=== PATIENT | female | born 1940 | race Caucasian/White ===

== ENCOUNTER 2016-03-23 15:15 | Outpatient (RCR) ==
[2013-04-13 18:57] VITALS: BMI 31.5
--- NOTE | 2016-03-21 16:12 | RS.OPPTDN ---
Subjective Date of Note: 03/21/16 Visit #: 17 Date of Evaluation: 01/13/16 Payer Source: MEDICARE Treatment Diagnosis: BLE weakness Current Subjective/complaints:: No c/o. Pain Assessment - Pain Description Current Pain Intensity: 0 Other Comments regarding Pain:: muscle soreness,but minimal Interventions - Exercise/Activities/Manual Therapy Exercises/Activities: 45 mins. total of Leg Press 75# for 04/02,90# for 05/03. Calf-raises onleg press ,05/31 @ 45#,blue theraband for seated hip abduction 3 15 reps.Side -steps up/down on base of treadmill at end of session.HEP review. Total minutes of Exercise: 45 Manual Therapy: na Total minutes of Manual Therapy: 0 HOME EXERCISE PROGRAM: Isometrics for hip strength, AROM in supine or sitting all planes as tolerated. Standing at kitchen counter for mini-squat, hip abd, toe-ups, weight-shift. - Charges Total Direct Minutes: 45 Total Treatment Time: 45 Procedures billed for this date of service:: ex3 Assessment: Patient has improved foot clearance,along with increased hip flexion with ambulatiion.She has steadier sit to stand transfers ,no lateral loss of balance noted today. Patient Education: Body/Joint mechanics, Home Exercise Program, Home Safety, Education of Plan of Care Patient demonstrates compliance with HEP?: Yes Short Term Goals Goal #1: Patient able to rise from a chair with minimal use of her hands. Goal to be met by: 03/07/16 Progress towards Goal:: Met Goal #2: Able to tolerated 20 reps of BLE exercise wtihout rest. 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 Goal to be met by: 03/23/16 Progress towards goal: Partially Met Goal #2: Patient is able to go shopping without having sit & rest from LE fatigue Goal to be met by: 03/23/16 Progress towards goal: Partially Met Goal #3: Tinetti score 20/28 Goal to be met by: 03/23/16 Progress towards goal: Progressing Goal #4: LE Functional Scale 55/80 Goal to be met by: 03/23/16 (34/80 today) Progress towards goal: Progressing Plan PLAN OF CARE EXPIRES ON:: 03/23/16 ORDER # VISITS AND/OR THROUGH DATE: 03/23/16 PLAN: Continue Plan of Care
--- NOTE | 2016-03-23 16:37 | RS.OPPTDN ---
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 Pain Assessment - Pain Description Pain Location: general ache Current Pain Intensity: 0 Interventions - Exercise/Activities/Manual Therapy Exercises/Activities: 45 mins. total of Leg Press 75# for 04/02,90# for 05/03. Calf-raises onleg press ,05/31 @ 45#,Side -steps up/down on base of treadmill at end of session.HEP review.Tinetti Assessment of ,Lower Extremity Functional Scoreof 40 /80. Total minutes of Exercise: 45 Manual Therapy: na Total minutes of Manual Therapy: 0 HOME EXERCISE PROGRAM: Isometrics for hip strength, AROM in supine or sitting all planes as tolerated. Standing at kitchen counter for mini-squat, hip abd, toe-ups, weight-shift. - Charges Total Direct Minutes: 45 Total Treatment Time: 45 Procedures billed for this date of service:: ex 3 Assessment: Patient progressed well,has met rehab potential ,with steadier transfers and gait .Her lateral trunk sway is significantly decreased with ambulation.She has very good understanding of safety issues and HEP.she is aware of /agrees with D/C today. Patient Education: Education of diagnosis, Body/Joint mechanics, Home Exercise Program, Home Safety, Activity Modification, Education of Plan of Care Patient demonstrates compliance with HEP?: Yes Short Term Goals Goal #1: Patient able to rise from a chair with minimal use of her hands. Goal to be met by: 03/07/16 Progress towards Goal:: Met Goal #2: Able to tolerated 20 reps of BLE exercise wtihout rest. 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 Goal to be met by: 03/23/16 Progress towards goal: Met Goal #2: Patient is able to go shopping without having sit & rest from LE fatigue Goal to be met by: 03/23/16 Progress towards goal: Met Goal #3: Tinetti score 20/28 Goal to be met by: 03/23/16 (26) Progress towards goal: Met Goal #4: LE Functional Scale 55/80 Goal to be met by: 03/23/16 (40/80) Progress towards goal: Progressing Plan PLAN OF CARE EXPIRES ON:: 03/23/16 ORDER # VISITS AND/OR THROUGH DATE: 03/23/16 PLAN: Plan for Discharge
--- NOTE | 2016-04-06 11:47 | RS.OPPTDC ---
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 Reports feeling confident that she can continue her exercises at home. Pain Assessment - Pain Description Pain Location: general ache Current Pain Intensity: 0 Functional Outcome Measure LE Functional Scale: 40 (50% impairment) Tinetti: 26 (26/28) - G Codes & Severity Modifier G Codes & Modifier: Mobilty goal CI. Mobility D/C CK Source of G Code score: LE functional scale Gait - Gait Pattern Gait Comments: Patient ambulates without assistive device with lateral trunk sway. She demonstrates minimal deviation from straigth path. Interventions - Exercise/Activities/Manual Therapy Exercises/Activities: NA Manual Therapy: na HOME EXERCISE PROGRAM: Isometrics for hip strength, AROM in supine or sitting all planes as tolerated. Standing at kitchen counter for mini-squat, hip abd, toe-ups, weight-shift. - Objective Findings Observations,measurements,etc.: Patient demonstrates improved LE and trunk strength of 4+ to 5-/5. Demonstrates good static balance. Dynamic balance is good (-). - Charges Total Direct Minutes: NA Total Treatment Time: NA Procedures billed for this date of service:: NA Assessment Assessment: Patient demonstrates improved safety with ambulation. Tinetti assessment shows her now to be at a low risk for falls with score of 26/28. She is independent with HEP and demonstrates no further need for skilled therapy. Short Term Goals Goal #1: Patient able to rise from a chair with minimal use of her hands. Goal to be met by: 03/07/16 Progress towards Goal:: Met Goal #2: Able to tolerated 20 reps of BLE exercise wtihout rest. Goal to be met by: 03/07/16 Progress towards Goal:: Met Goal #3: Paitient ambulates X 400' with minimal path deviation and good gait pattern Goal to be met by: 03/07/16 Progress towards Goal:: Met Goal #4: Independent with HEP Goal to be met by: 03/07/16 Progress towards Goal:: Met Transportation Supervisor Goals Goal #1: Bilateral hip strength 4+/5 for stability. Goal to be met by: 03/23/16 Progress towards goal: Met Goal #2: Patient is able to go shopping without having sit & rest from LE fatigue Goal to be met by: 03/23/16 Progress towards goal: Met Goal #3: Tinetti score 20/28 Goal to be met by: 03/23/16 (26) Progress towards goal: Met Goal #4: LE Functional Scale 55/80 Goal to be met by: 03/23/16 (40/80) Progress towards goal: Not Met Plan Reason for Discharge:: No Further Skilled Therapy Indicated
== END 2016-04-06 13:32 | disposition home or self-care (01) ==
PROVIDERS: ATTEND Internal Medicine Rheumatology
DX: M62.81 Muscle weakness (generalized) (principal)

== ENCOUNTER 2016-04-09 08:54 | Emergency (ER) ==
[2016-04-09 09:00] VITALS: BP 164/90; TEMP 98.9; BMI 28.7
[2016-04-09] MEDS ORDERED: DUONEB NEB STA ×2 (09:14→11:00)
--- NOTE | 2016-04-09 09:29 | DI ---
EXAM: Two views of the chest. History: Cough. Comparison: Chest radiograph 04/13/2013 Findings: Borderline cardiomegaly. No focal consolidation. No appreciable pleural fluid and no pne umothorax. No acute osseous abnormalities. Moderate to severe degenerative disc disease within the visualized upper lumbar spine. Impression: Borderline cardiomegaly without acute disease in the chest.
[2016-04-09 09:42] LABS: BASOPHILS % (AUTO) 0.2 % (0.0-3.0); EOSINOPHILS # (AUTO) 0.4 K/ul (0.0-0.7); EOSINOPHILS % (AUTO) 3.5 % (0.0-7.0); HEMATOCRIT 32.4 % (37.0-47.0); HEMOGLOBIN 10.2 g/dl (12.0-16.0); IMMATURE GRANULOCYTE % (AUTO) 0.4 % (0.0-5.0); LYMPHOCYTES # (AUTO) 1.3 K/uL (0.60-3.4); LYMPHOCYTES % (AUTO) 10.3 (10.0-50.0); MEAN CORPUSCULAR HEMOGLOBIN 29.9 pg (27.0-31.0); MEAN CORPUSCULAR HGB CONC 31.5 (31.8-35.4); MONOCYTES # (AUTO) 1.6 K/uL (0.4-2.0); MONOCYTES % (AUTO) 12.9 (0-10); NEUTROPHILS % (AUTO) 72.7; PLATELET COUNT 260 10^3/uL (140-440); RED BLOOD COUNT 3.41 10^6/ul (4.20-5.40); WHITE BLOOD COUNT 12.37 K/ul (4.6-10.2)
[2016-04-09 10:06] LABS: FLU INTERNAL QC INTERNAL QC VALID; RAPID FLU A NEGATIVE (NEGATIVE); RAPID FLU B NEGATIVE (NEGATIVE)
[2016-04-09 10:07] LABS: ALBUMIN 3.8 g/dL (3.4-5.0); ALBUMIN/GLOBULIN RATIO 1.03; ANION GAP 15.8; BILIRUBIN,TOTAL 0.79 mg/dL (0.00-1.20); BUN/CREATININE RATIO 17.8; CALCIUM 10.5 mg/dL (8.2-10.2); CREATININE 1.46 mg/dL (0.60-1.30); POTASSIUM 3.8 mmol/L (3.5-5.10); TOTAL PROTEIN 7.5 g/dL (5.8-8.1); TROPONIN I 0.028 ng/ml (0.0000-0.4000)
[2016-04-09] MEDS ORDERED: DECADRON 4 MG/ML SDV IM STA (10:53)
[2016-04-09] MEDS ORDERED: LIDOCAINE 1 % AMP 5 ML (SUTURES) IM STA (11:00)
[2016-04-09] MEDS ORDERED: ROCEPHIN IM STA (11:00)
--- NOTE | 2016-04-09 11:00 | ED.PDOC ---
General ED Provider: Dr. ROSALIO VALDOVINOS Chief Complaint: Respiratory Complaint Stated Complaint: cough Time Seen by Physician: 09:00 (saw PMD ABOUT 3 DAYS AGO ON ANTIBIOTICS AND COUGH MEDS ) Mode of Arrival: Walk-In Information Source: Patient Exam Limitations: No limitations Primary Care Provider: STEVE CORNEJO Nursing and Triage Documentation Reviewed and Agree: Yes Respiratory Complaint Exam - Respiratory Complaint/Exam Onset/Duration: 3 TO 4 DAYS Symptoms Are: Still present Timing: Constant Initial Severity: Mild Current Severity: Mild Location: Throat, Chest Character: Reports: Productive cough (YELLOW , THICK) Alleviating: Reports: Bronchodilators Associated Signs and Symptoms: Reports: Nasal congestion Related History: Reports: Similar episode Related Surgical History: Reports: None Pulmonary Embolism Risk Factors: None Cardiac Risk Factors: Reports: Diabetes, Hypertension Tuberculosis Risk Factors: Reports: None Status Asthmaticus Risk Factors: Reports: None Home Oxygen Use: No Recent Stress Test: No Recent Echo/LV Function: No Current Antibiotic Use: No Current Asthma Medication Use: No Respiratory Distress: None Inadequate Respiratory Effort: No Dysphagia Present: No Stridor Present: No JVD Present: No Retractions: Not Present Diminished Breath Sounds: No Sinus Tenderness: None Grunting Respirations: No Kussmaul Respirations: No Differential Diagnoses: Pneumonia, Bronchitis Review of Systems - Review Of Systems Constitutional: Reports: No symptoms Eyes: Reports: No symptoms Ears, Nose, Mouth, Throat: Reports: No symptoms Respiratory: Reports: Cough, Wheezing Cardiac: Reports: No symptoms GI: Reports: No symptoms : Reports: No symptoms Musculoskeletal: Reports: No symptoms Skin: Reports: No symptoms Neurological: Reports: No symptoms Endocrine: Reports: No symptoms Hematologic/Lymphatic: Reports: No symptoms All Other Systems: Reviewed and Negative Past Medical History - Past Medical History Previously Healthy: No Endocrine: Reports: DM 2, Hypothyroid Cardiovascular: Reports: Hypertension Respiratory: Reports: None Hematological: Reports: None Gastrointestinal: Reports: None Genitourinary: Reports: None Neuro/Psych: Reports: None Musculoskeletal: Reports: None Cancer: Reports: Breast Last Menstrual Period: several years ago - Surgical History General Surgical History: Reports: Unknown - Family History Family History: Reports: Unknown - Social History Smoking Status: Former smoker Hx Substance Use: No Alcohol Screening: None - Immunizations Tetanus Shot up to Date: No Physical Exam - Physical Exam Appearance: Well-appearing, No pain distress, Well-nourished Eyes: JARVIS, EOMI, Conjunctiva clear ENT: Ears normal, Nose normal, Oropharynx normal Respiratory: Rhonchi Cardiovascular: RRR, Pulses normal, No rub, No murmur GI/: Soft, Nontender, No masses, Bowel sounds normal, No Organomegaly Musculoskeletal: Normal strength, ROM intact, No edema, No calf tenderness Skin: Warm, Dry, Normal color Neurological: Sensation intact, Motor intact, Reflexes intact, Cranial nerves intact, Alert, Oriented Psychiatric: Affect appropriate, Mood appropriate Critical Care Note - Critical Care Note Total Time (mins): 0 Course - Course Hematology/Chemistry: 04/09/16 09:30 04/09/16 09:30 Orders, Labs, Meds: Lab Review 04/08/16 04/09/16 09:30 09:30 WBC 12.37 H RBC 3.41 L Hgb 10.2 L Hct 32.4 L MCV 95.0 MCH 29.9 MCHC 31.5 L RDW Coeff of Girma 15.5 H Plt Count 260 Immature Gran % (Auto) 0.4 Neut % (Auto) 72.7 Lymph % (Auto) 10.3 [place] % (Auto) 12.9 H Eos % (Auto) 3.5 Baso % (Auto) 0.2 Immature Gran # (Auto) 0.1 Neut # 9.0 H Lymph # 1.3 [place] # 1.6 Eos # 0.4 Baso # 0.0 D-Dimer 1.62 Sodium 140 Potassium 3.8 Chloride 100 Carbon Dioxide 28 Anion Gap 15.8 BUN 26 H Creatinine 1.46 H Estimated GFR (MDRD) 35.00 BUN/Creatinine Ratio 17.80 Glucose 119 H Calcium 10.5 H Total Bilirubin 0.79 AST 22 ALT 30 Alkaline Phosphatase 131 Total Creatine Kinase 68 Troponin I 0.0280 B-Natriuretic Peptide 149 H Total Protein 7.5 Albumin 3.8 Globulin 3.7 Albumin/Globulin Ratio 1.03 Influenza A (Rapid) Negative Influenza B (Rapid) Negative Orders Category Date Time Status NEBULIZER TREATMENT Stat CARDIO 04/09/16 09:14 Ordered B-TYPE NATRIURETIC PEPTIDE Stat LAB 04/09/16 09:30 Completed BLOOD CULTURE Stat LAB 04/09/16 09:30 Received CBC W/ AUTO DIFF Stat LAB 04/09/16 09:30 Completed COMPREHENSIVE METABOLIC PANEL Stat LAB 04/09/16 09:30 Completed CREATINE KINASE Stat LAB 04/09/16 09:30 Completed D-DIMER Stat LAB 04/09/16 09:30 Completed MOLECULAR GROUP A STREP Stat LAB 04/08/16 09:30 Results RAPID FLU A/B Stat LAB 04/08/16 09:30 Completed STREP SCREEN Stat LAB 04/08/16 09:30 Results TROPONIN I Stat LAB 04/09/16 09:30 Completed Dexamethasone 4 mg/ml Inj [Decadron 4 mg/ml Sdv] MEDS 04/09/16 10:53 Stat 4 mg IM ONCE STA Ipratropium/Albuterol Neb [Duoneb] MEDS 04/09/16 09:14 Discontinued 1 vial NEB ONCE STA CHEST, 2 VIEWS PA & LAT Stat RADS 04/09/16 09:12 Completed Medications Discontinued Medications Generic Name Dose Route Start Last Admin Trade Name Freq PRN Reason Stop Dose Admin Albuterol/Ipratropium 1 vial 04/09/16 09:14 04/09/16 09:30 Duoneb NEB 04/09/16 09:15 1 vial ONCE STA Administration Dexamethasone Sodium Phosphate 4 mg 04/09/16 10:53 Decadron 4 Mg/Ml Sdv IM 04/09/16 10:54 ONCE STA Vital Signs: Temp Pulse Resp BP Pulse Ox 04/09/16 08:54 98.9 F 84 20 164/90 H 96 Departure - Departure Time of Disposition: 11:02 Disposition: HOME SELF-CARE Discharge Problem: Bronchitis Instructions: Acute Bronchitis (ED), Wheezing (ED), How Your Lungs Work (ED), Bronchospasm (ED) Condition: Good Pt referred to PMD for follow-up: No Additional Instructions: Please call your Family Physician as soon as possible to schedule a follow-up appointment. Allergies/Adverse Reactions: Allergies No Known Drug Allergies Adverse Reaction (Unverified 04/13/13 20:01) Home Medications: Ambulatory Orders Furosemide [Lasix Tab] 40 mg PO DAILY 04/13/13 Lansoprazole [Prevacid] 30 mg PO DAILY 04/13/13 Levothyroxine Sodium [Synthroid] 150 mcg PO DAILY 04/13/13 Pravastatin Sodium [Pravachol] 40 mg PO DAILY 04/13/13 Sitagliptin Phos/Metformin HCl [Janumet 50-1,000 mg Tablet] 1 tab PO DAILY 04/13 Tramadol HCl [Ultram] 50 mg PO BID PRN 04/13/13 Disposition Discussed With: Patient, Family
[2016-04-18 15:19] LABS: AEROBIC + ANAEROB SUSC Final report (.); BACTERIA IDENTIFICATION Final report (.)
== END 2016-04-09 11:44 | disposition home or self-care (01) ==
LOC: ED 08:54
DX: J20.8 Acute bronchitis due to other specified organisms (principal); I10 Essential (primary) hypertension; E11.9 Type 2 diabetes mellitus without complications; E03.9 Hypothyroidism, unspecified; Z79.899 Other long term (current) drug therapy
CPT/HCPCS: 36415; 80053; 82550; 83880; 84484; 85025; 85379; 87040; 87070; 87077; 87186; 87651; 87804; 87880; 94640; 96372; 99283

== ENCOUNTER 2016-08-01 14:10 | Outpatient (CLI) | END 2016-08-01 14:11 | LOC: AMBL 14:10 | PROVIDERS: ATTEND Emergency Medicine | DX: M79.672 Pain in left foot (principal); M79.671 Pain in right foot; G62.9 Polyneuropathy, unspecified; R73.9 Hyperglycemia, unspecified ==

== ENCOUNTER 2017-05-02 17:00 | Outpatient (CLI) | END 2017-05-02 17:01 | disposition home or self-care (01) | LOC: LAB 17:00 | PROVIDERS: ATTEND Specialist | DX: C50.512 Malignant neoplasm of lower-outer quadrant of left female breast (principal); R97.8 Other abnormal tumor markers | CPT/HCPCS: 36415; 85025 ==

== ENCOUNTER 2017-06-04 12:18 | Outpatient (CLI) | END 2017-06-04 12:19 | disposition home or self-care (01) | LOC: FCC-LAB 12:18 | PROVIDERS: ATTEND Nurse Practitioner Family | DX: R50.9 Fever, unspecified (principal); J02.9 Acute pharyngitis, unspecified | CPT/HCPCS: 87651; 87804 ==

== ENCOUNTER 2017-06-26 08:05 | Outpatient (CLI) | END 2017-06-26 08:06 | disposition home or self-care (01) | LOC: LAB 08:05 | PROVIDERS: ATTEND Family Medicine | DX: E03.9 Hypothyroidism, unspecified (principal); E11.9 Type 2 diabetes mellitus without complications; N18.2 Chronic kidney disease, stage 2 (mild); I10 Essential (primary) hypertension; Z23 Encounter for immunization; Z68.29 Body mass index [BMI] 29.0-29.9, adult; Z87.891 Personal history of nicotine dependence; G44.83 Primary cough headache | CPT/HCPCS: 36415; 80053; 80061; 83036; 84439; 84443; 85027 ==

== ENCOUNTER 2018-05-07 17:50 | Outpatient (CLI) | END 2018-05-07 17:51 | disposition home or self-care (01) | LOC: LAB 17:50 | PROVIDERS: ATTEND Specialist | DX: C50.512 Malignant neoplasm of lower-outer quadrant of left female breast (principal); D53.9 Nutritional anemia, unspecified | CPT/HCPCS: 36415; 85025 ==

== ENCOUNTER 2018-05-29 17:55 | Outpatient (CLI) | END 2018-05-29 17:56 | disposition home or self-care (01) | LOC: LAB 17:55 | PROVIDERS: ATTEND Specialist | DX: D53.9 Nutritional anemia, unspecified (principal) | CPT/HCPCS: 36415; 85025 ==

== ENCOUNTER 2018-07-07 12:08 | Emergency (ER) ==
[2018-07-07 12:08] VITALS: BMI 28.7
[2018-07-07 12:10] VITALS: BP 167/80; TEMP 102
--- NOTE | 2018-07-07 12:57 | CT ---
EXAM: CT scan chest without contrast HISTORY: Cough fever COMPARISON: None. FINDINGS: Contiguous axial images obtained through the thorax without [place] utilizing 5-mm collimatio n. Sagittal and coronal reconstructions were imaged and reviewed.. The thoracic inlet is unremarkab le. There are subcentimeter mediastinal lymph nodes. Calcified lymph nodes are seen within the bila teral monse. The ascending aorta is ectatic measuring 3.2 cm. Heart is enlarged with coronary calcif ication. There is no pericardial effusion.. Consolidation is noted at the right lung base compatibl e with pneumonia. There is no evidence of a pleural effusion.: . The left lung is clear. There has been prior cholecystectomy . There are thickening left adrenal gland. IMPRESSION: Right lower lobe pneumonia Follow-up chest x-ray is suggested to ensure complete resolution
[2018-07-07] MEDS ORDERED: TYLENOL PO STA (13:14)
--- NOTE | 2018-07-07 13:17 | ED.PDOC ---
General ED Provider: Dr. TRINA VELASQUEZ-ER Chief Complaint: Fever Stated Complaint: ilia had a cough Time Seen by Physician: 12:10 Mode of Arrival: Walk-In Information Source: Patient Exam Limitations: No limitations Primary Care Provider: TRINA VELASQUEZ Nursing and Triage Documentation Reviewed and Agree: Yes Does patient meet sepsis criteria?: No System Inflammatory Response Syndrome: Not Applicable Sepsis Protocol: For patient's 13 years and over: Temp is 96.8 and below OR 101 and greater Pulse >90 BPM Resp >20/minute Acutely Altered Mental Status Are patient's symptoms suggestive of a new infection, such as: -Pneumonia -Skin, Soft Tissue -Endocarditis -UTI -Bone, Joint Infection -Implantable Device -Acute Abdominal Infection -Wound Infection -Meningitis -Blood Stream Catheter Infection -Unknown Respiratory Complaint Exam - Respiratory Complaint/Exam Onset/Duration: 2 days Symptoms Are: Still present Timing: Intermittent Initial Severity: Mild Current Severity: Moderate Location: Chest Character: Reports: Non-productive cough Aggravating: Reports: URI Associated Signs and Symptoms: Reports: Fever, Chills, URI. Denies: Rapid breathing, Dyspnea Related History: Reports: Similar episode History of Healthcare-Acquired Pneumonia: No Home Oxygen Use: No Recent Stress Test: No Recent Echo/LV Function: No Current Antibiotic Use: No Current Asthma Medication Use: No Respiratory Distress: None Inadequate Respiratory Effort: No Dysphagia Present: No Stridor Present: No JVD Present: No Accessory Muscle Use: No Retractions: Not Present Diminished Breath Sounds: No Sinus Tenderness: None Grunting Respirations: No Kussmaul Respirations: No Differential Diagnoses: Pneumonia Review of Systems - Review Of Systems Constitutional: Reports: Chills, Fever, Weakness Eyes: Reports: No symptoms Ears, Nose, Mouth, Throat: Reports: No symptoms Respiratory: Reports: Cough Cardiac: Reports: No symptoms GI: Reports: No symptoms : Reports: No symptoms Musculoskeletal: Reports: No symptoms Skin: Reports: No symptoms Neurological: Reports: No symptoms Endocrine: Reports: No symptoms Hematologic/Lymphatic: Reports: No symptoms All Other Systems: Reviewed and Negative Past Medical History - Past Medical History Previously Healthy: No Endocrine: Reports: DM 2, Hypothyroid Cardiovascular: Reports: Hypertension Respiratory: Reports: None Hematological: Reports: None Gastrointestinal: Reports: None Genitourinary: Reports: None Neuro/Psych: Reports: None Musculoskeletal: Reports: None Cancer: Reports: Breast Last Menstrual Period: HYSTERECTOMY - Surgical History General Surgical History: Reports: Unknown - Family History Family History: Reports: Unknown - Social History Smoking Status: Former smoker Hx Substance Use: No Alcohol Screening: None - Immunizations Tetanus Shot up to Date: No Physical Exam - Physical Exam Appearance: Well-appearing, No pain distress, Well-nourished Eyes: JARVIS, EOMI, Conjunctiva clear ENT: Ears normal Neck: Supple Respiratory: Crackles, Rhonchi Cardiovascular: RRR, Pulses normal, No rub, No murmur GI/: Soft, Nontender, No masses, Bowel sounds normal, No Organomegaly Musculoskeletal: Normal strength, ROM intact, No edema, No calf tenderness Skin: Warm, Dry, Normal color Neurological: Sensation intact, Motor intact, Reflexes intact, Cranial nerves intact, Alert, Oriented Psychiatric: Affect appropriate, Mood appropriate Interpretation - Radiology Interpretation Radiology Interpretation By: Radiologist Radiology Results: Positive Exam Interpreted: CT Scan Critical Care Note - Critical Care Note Total Time (mins): 0 Course - Course Hematology/Chemistry: 07/07/18 12:40 07/07/18 12:40 Orders, Labs, Meds: Lab Review 07/07/18 07/07/18 07/07/18 12:20 12:40 12:40 WBC 11.17 H RBC 3.59 L Hgb 10.8 L Hct 34.0 L MCV 94.7 MCH 30.1 MCHC 31.8 RDW Coeff of Girma 16.1 H Plt Count 173 Immature Gran % (Auto) 0.4 Neut % (Auto) 85.8 Lymph % (Auto) 5.0 L [place] % (Auto) 7.9 Eos % (Auto) 0.6 Baso % (Auto) 0.3 Immature Gran # (Auto) 0.0 Neut # (Auto) 9.6 H Lymph # (Auto) 0.6 [place] # (Auto) 0.9 Eos # (Auto) 0.1 Baso # (Auto) 0.0 Sodium 134.8 Potassium 4.17 Chloride 99.2 Carbon Dioxide 29.3 Anion Gap 10.47 BUN 28.9 H Creatinine 1.75 H Estimated GFR (MDRD) 28.00 BUN/Creatinine Ratio 16.51 Glucose 138.6 H Calcium 9.84 Total Bilirubin 0.99 AST 50.5 H ALT 44.2 H Alkaline Phosphatase 119.4 Total Protein 7.28 Albumin 4.48 Globulin 2.80 Albumin/Globulin Ratio 1.60 Influ A Molecular Assay Negative by naat Influ B Molecular Assay Negative by naat Orders Category Date Time Status BLOOD CULTURE (ED ONLY) Stat LAB 07/07/18 12:40 Received CBC W/ AUTO DIFF Stat LAB 07/07/18 12:40 Completed COMPREHENSIVE METABOLIC PANEL Stat LAB 07/07/18 12:40 Completed FLU A/B MOLECULAR Stat LAB 07/07/18 12:20 Completed INFLUENZA A&B AB, QUANT Stat LAB 07/07/18 12:16 Stop Req Acetaminophen [Tylenol] MEDS 07/07/18 13:14 Discontinued 650 mg PO ONCE STA CT CHEST W/O CONTRAST Stat RADS 07/07/18 12:17 Completed Medications Discontinued Medications Generic Name Dose Route Start Last Admin Trade Name Freq PRN Reason Stop Dose Admin Acetaminophen 650 mg 07/07/18 13:14 Tylenol PO 07/07/18 13:15 ONCE STA Vital Signs: Temp Pulse Resp BP Pulse Ox 07/07/18 12:08 102.0 F H 76 18 167/80 H 96 Departure - Departure Time of Disposition: 13:17 Disposition: TSF SHORT-TRM HOSP Discharge Problem: Pneumonia Qualifiers: Pneumonia type: due to unspecified organism Laterality: unspecified laterality Lung location: lower lobe of lung Qualified Code(s): J18.1 - Lobar pneumonia, unspecified organism Instructions: Community Acquired Pneumonia (ED) Condition: Good Pt referred to PMD for follow-up: Yes IPMP verified?: No Allergies/Adverse Reactions: Allergies No Known Drug Allergies Adverse Reaction (Unverified 07/07/18 12:10) Home Medications: Ambulatory Orders Levothyroxine Sodium [Synthroid] 150 mcg PO DAILY 04/13/13 Pravastatin Sodium [Pravachol] 40 mg PO DAILY 04/13/13 Linaclotide [Linzess] 290 mcg PO DAILY 06/04/17 Ranitidine HCl [Zantac] 150 mg PO BID 06/04/17 Amiodarone HCl 200 mg PO BID 07/07/18 Amlodipine Besylate 5 mg PO DAILY 07/07/18 Apixaban [Eliquis] 5 mg PO BID 07/07/18 Brimonidine Tartrate/Timolol [Combigan Eye Drops] 5 ml OP DAILY 07/07/18 Ferrous Sulfate 325 mg PO DAILY 07/07/18 Furosemide 40 mg PO DAILY 07/07/18 Latanoprost 2.5 ml OP DAILY 07/07/18 Loteprednol Etabonate [Lotemax] 5 ml OP BID 07/07/18 Sitagliptin Phosphate [Januvia] 50 mg PO DAILY 07/07/18 Vit A/Vit C/Vit E/Zinc/Copper [Preservision Areds Softgel] 1 each PO DAILY 07/07 Transfer Form Completed: Yes Disposition Discussed With: Patient, Family
== END 2018-07-07 13:37 | disposition short-term general hospital (02) ==
LOC: ED 12:08
DX: J18.1 Lobar pneumonia, unspecified organism (principal); E11.9 Type 2 diabetes mellitus without complications; I10 Essential (primary) hypertension; E03.9 Hypothyroidism, unspecified; Z79.899 Other long term (current) drug therapy
CPT/HCPCS: 36415; 80053; 85025; 87040; 87502; 99285